=== PATIENT | male | born 1985 | race Caucasian/White ===

== ENCOUNTER 2023-04-26 21:03 | Emergency (ER) | payer SELFPAY ==
[2023-04-26 21:17] VITALS: BP 107/73; PULSE 64; RESP 18; TEMP 36.6; O2SAT 100; BMI 29.4
[2023-04-26 21:45] LABS: MANUAL DIFF FLAG NO
[2023-04-26 21:47] LABS: Basophils Percent Auto 0.3 % (0-2); Eosinophils Absolute Auto 0.2 X10*3/uL (0.0-0.4); Hematocrit 43.5 % (42.0-52.0); Hemoglobin 14.9 g/dl (14.0-18.0); Imm Gran Abs Auto 0.09 X10*3/uL (0.00-0.03); Imm Gran Pct Auto 0.6 % (0.0-0.4); Lymphocytes Absolute Auto 3.4 X10*3/uL (1.2-4.9); Lymphocytes Percent Auto 21.9 % (20-40); Mean Corpuscular HGB Conc 34.3 g/dl (31.0-36.0); Mean Corpuscular Hemoglobin 29.5 pg (27.0-33.0); Mean Corpuscular Volume 86.1 fL (80.0-98.0); Mean Platelet Volume 9.8 fL (9.4-12.4); Monocytes Percent Auto 6.5 % (2-11); Neutrophils Percent Auto 69.7 % (45-73); Platelet Count 298 X10*3/uL (160-400); Red Blood Count 5.05 X10*6/uL (4.60-5.80); Red Cell Distribution Width 12.8 % (11.0-16.0); White Blood Count 15.7 X10*3/uL (4.8-10.8)
[2023-04-26 22:00] LABS: COVID-19 Test Negative (Negative); IDNOW Serial# 6674DD1D
[2023-04-26 22:04] LABS: Alanine Aminotransferase 22 U/L (0-40); Albumin Level 4.1 g/dL (3.5-5.0); Alkaline Phosphatase 98 U/L (39-117); Anion Gap 19 (12-20); Aspartate Amino Transferase 17 U/L (5-37); Bilirubin Total 0.4 mg/dL (0.0-1.0); Blood Urea Nitrogen 8 mg/dL (9-16); Calcium 9.8 mg/dL (8.4-10.2); Carbon Dioxide 20 mmol/L (22-29); Chloride 104 mmol/L (96-108); Creatinine Clr Calc Pharmacy 129.6; Estimated Glomerular Filt Rate > 60; Glucose Random 108 mg/dL (60-115); Potassium 3.7 mmol/L (3.3-5.1); Sodium 139 mmol/L (135-145); Total Protein 7.7 g/dL (6.5-8.0)
--- NOTE | 2023-04-26 22:55 | ED.GENADULT ---
HPI - General Adult General Chief complaint: General Medical Stated complaint: N/V headache, L body pain Time Seen by Provider: 04/26/23 22:54 Source: patient Mode of arrival: ambulatory Limitations: no limitations History of Present Illness HPI narrative: Patient is a 37-year-old male presenting to the emergency department with complaint of headache, nausea, and vomiting for 2 hours prior to arrival. Complains of generalized abdominal pain. States has been able to tolerate some PO fluids. Denies fever. Denies dysuria, hematuria, or other urinary symptoms. Denies any chest pain or dyspnea. Denies diarrhea. Denies blurred vision, double vision or other visual changes. Denies headache worst at onset or worst headache of life. Denies headache worse with standing. 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 MD complaint: headache, nausea, vomiting Onset (ago): hour(s) Location: abdomen Radiation: non-radiation Severity: moderate Pain Consistency: constant Relieving factors: rest Exacerbating factors: eating Associated symptoms: headaches Treatments prior to arrival: none Related Data Previous Rx's Medication Instructions Recorded ondansetron 4 mg disintegrating 4 mg PO Q8H PRN nausea and 04/26/23 tablet vomiting #12 tabs Allergies Allergy/AdvReac Type Severity Reaction Status Date / Time No Known Allergies Allergy Verified 04/26/23 21:37 Review of Systems Review of Systems: as per HPI. Yes all other systems are reviewed and are negative Constitutional: Constitutional: Reports as per HPI [facility] Social History Social History Advance Directives: No Advance Directives Information Provided: Yes Physical Exam ED Vital Signs: Vital Signs - 24 hr 04/26/23 21:17 04/26/23 23:28 Temperature 97.9 F 98.2 F Pulse Rate 64 62 Respiratory Rate 18 19 Blood Pressure 107/73 114/70 Pulse Oximetry 100 100 Oxygen Delivery Method Room Air Room Air BMI result Body Mass Index 29.4 Vital signs have been reviewed and appear to be correct. Blood pressure normal. Heart rate normal. Respiratory rate normal. Temperature normal. Oxygen saturation normal. Const General: cooperative, healthy appearing and no acute distress Orientation/consciousness: oriented to person, oriented to place, oriented to time and patient oriented x3 Limitations: no limitations HENMT Head: Yes normocephalic and Yes atraumatic Ears: external ears normal General nose exam: Normal external nose present Face and sinus: Yes face symmetric Mouth: oropharynx normal and moist mucous membranes Throat: Yes uvula midline Eyes Pupils: Equal, round and reactive pupils present Neck Neck: Yes normal visual inspection and Yes supple Resp Effort & Inspection: normal respiratory effort and able to speak in complete sentences Auscultation: clear to auscultation bilaterally Cardio Rate: regular rate Rhythm: regular rhythm Heart sounds: S1 normal heart sound present and S2 normal heart sound present GI Palpation (GI): Soft to palpation and nontender Auscultation: normoactive bowel sounds General: Yes no CVA tenderness Back/Spine/Pelvis Back: no CVA tenderness Skin General skin exam: elasticity normal and turgor normal Neuro General: oriented to person, oriented to place, oriented to time, patient oriented x3, moves all extremities, no focal motor deficits and CN's II-XI intact bilaterally Cranial nerves: Yes Equal, round and reactive pupils present Cognition (Neuro): normal cognition Extrem General: Yes full ROM, Yes no pedal edema and Yes no calf tenderness Psych Mental Status: mental status grossly normal Affect: normal affect Thought process: Normal thought process present Medications Administered Discontinued Medications Generic Name Dose Route Start Last Admin Trade Name Freq PRN Reason Stop Dose Admin Ketorolac Tromethamine 30 mg 04/26/23 22:58 04/26/23 23:23 Ketorolac Tromethamine 30 Mg/Ml Vial IM 04/26/23 22:59 30 mg ONCE ONE Administration Ondansetron HCl 4 mg 04/26/23 22:58 04/26/23 23:23 Ondansetron Odt 4 Mg Tab.Rapdis TRANSLINGU 04/26/23 22:59 4 mg ONCE ONE Administration Medical Decision Making Medical Decision Making [facility] Narrative: Patient is a 37-year-old male presenting to the emergency department with complaint of headache, nausea, and vomiting for 2 hours prior to arrival. On exam patient is awake, A+Ox3, VS WNL, afebrile, nontoxic appearing, normal neurological exam without focal deficits, abdomen soft and nontender, no guarding or rebound tenderness, normoactive bowel sounds, no CVA tenderness. Labs notable for leukocytosis without left shift, normal LFTs and lipase, electrolytes WNL. Given reported symptoms and physical exam findings, feel symptoms are likely related to viral gastroenteritis. Do not suspect cholecystitis, pancreatitis, hepatitis, UTI/pyelonephritis, appendicitis. Unlikely bowel obstruction. Patient able to tolerate p.o. fluids in the ED. Feel patient is stable for discharge home at this time. Will prescribe Zofran for nausea, advised Tylenol and ibuprofen for headache, encourage adequate fluid intake. Instructed patient to follow-up with PCP. Return precautions discussed at bedside. Patient verbalized understanding of and agreement with plan. Differential Diagnosis Differential Diagnoses: The differential diagnosis associated with the presentation includes As per [facility]. Admission/Observation Consideration of admission/observation: Escalation of care including admission/observation considered Lab Data [facility] Lab Attestation statement: I reviewed the patient's lab results. As per MDM. 04/26/23 21:41 04/26/23 21:41 Labs: Lab Results 04/26/23 04/26/23 04/26/23 Range/Units 21:41 21:41 21:41 WBC 15.7 H (4.8-10.8) X10*3/uL RBC 5.05 (4.60-5.80) X10*6/uL Hgb 14.9 (14.0-18.0) g/dl Hct 43.5 (42.0-52.0) % MCV 86.1 (80.0-98.0) fL MCH 29.5 (27.0-33.0) pg MCHC 34.3 (31.0-36.0) g/dl RDW 12.8 (11.0-16.0) % Plt Count 298 (160-400) X10*3/uL MPV 9.8 (9.4-12.4) fL Immature Gran % (Auto) 0.6 H (0.0-0.4) % Neut % (Auto) 69.7 (45-73) % Lymph % (Auto) 21.9 (20-40) % Clay % (Auto) 6.5 (2-11) % Eos % (Auto) 1.0 (0-4) % Baso % (Auto) 0.3 (0-2) % Lymph # (Auto) 3.4 (1.2-4.9) X10*3/uL Clay # (Auto) 1.0 (0.1-1.2) X10*3/uL Eos # (Auto) 0.2 (0.0-0.4) X10*3/uL Baso # (Auto) 0.0 (0.0-0.2) X10*3/uL Abs Immat Gran (auto) 0.09 H (0.00-0.03) X10*3/uL Absolute Neuts (auto) 11.0 H (2.0-8.3) x10*3/uL Absolute Nucleated RBC 0.000 (0.0-0.012) X10*3/uL Nucleated RBC % (auto) 0.0 (0.0-0.2) /100WBC Sodium 139 (135-145) mmol/L Potassium 3.7 (3.3-5.1) mmol/L Chloride 104 (96-108) mmol/L Carbon Dioxide 20 L (22-29) mmol/L Anion Gap 19 (12-20) BUN 8 L (9-16) mg/dL Creatinine 0.85 (0.5-1.4) mg/dL Estim Creat Clear Calc 129.6 Estimated GFR > 60 Random Glucose 108 (60-115) mg/dL Calcium 9.8 (8.4-10.2) mg/dL Total Bilirubin 0.4 (0.0-1.0) mg/dL AST 17 (5-37) U/L ALT 22 (0-40) U/L Alkaline Phosphatase 98 (39-117) U/L Total Protein 7.7 (6.5-8.0) g/dL Albumin 4.1 (3.5-5.0) g/dL COVID-19 ([place]) Negative (Negative) COVID-19 Clin Com See Note External Record Review External record reviewed: Inpatient record, Office record and Outpatient record Prescription Management I considered prescription management with: Other ( Zofran) Discharge Plan Discharge Clinical Impression: Viral gastroenteritis Patient Disposition: Home, Self-Care Instructions: Acute Nausea and Vomiting (ED) Additional Instructions: You have been evaluated in the emergency department today for nausea, vomiting, and headache. Your evaluation suggests that your symptoms are most likely due to a viral illness which will improve on it's own with rest and fluids. Remember to drink plenty of fluids at home. You are being prescribed ondansetron which you can use as per the prescription instructions for nausea. You can take 650 mg Tylenol or 600 mg ibuprofen as needed for headache. If necessary, you can alternate these medications every 3 hours, for example, take Tylenol at noon, take ibuprofen at 3:00 p.m., take Tylenol at 6:00 p.m., etc. Please follow up with your primary care provider within two days. Return to the emergency department if you experience worsening or uncontrolled pain, inability to tolerate fluids by mouth, difficulty breathing, fevers 100.4? F or greater, recurrent vomiting, or any other concerning symptoms. Prescriptions: New ondansetron 4 mg tablet,disintegrating 4 mg PO Q8H PRN (Reason: nausea and vomiting) Qty: 12 0RF Interventions: ED Discharge Assessment Last Done: 04/26/23 23:29 Discharge Date/Time: 04/26/23 23:29
[2023-04-26] MEDS: Ondansetron ODT 4 MG TAB.RAPDIS TRANSLINGU (23:23)
[2023-04-26] MEDS: Ketorolac Tromethamine 30 MG/ML VIAL IM (23:23)
[2023-04-26 23:28] VITALS: BP 114/70; PULSE 62; RESP 19; TEMP 36.8; O2SAT 100
== END 2023-04-26 23:29 | disposition home or self-care (01) ==
PROVIDERS: Physician Assistant Medical; Emergency Provider Emergency Medicine
DX: K52.9 Noninfective gastroenteritis and colitis, unspecified (principal); M79.10 Myalgia, unspecified site; Z20.822 Contact with and (suspected) exposure to COVID-19; Z20.828 Contact with and (suspected) exposure to other viral communicable diseases; Z79.899 Other long term (current) drug therapy
CPT/HCPCS: 36415; 80053; 85025; 87635; 96372; 99283; 99284; J1885